=== PATIENT | female | born 1990 | race Caucasian/White ===

== ENCOUNTER 2023-05-30 23:59 | Emergency (ER) | payer MEDICAID ==
[~2023-05-30] VITALS: Ht 152.4 cm; Wt 90.7 kg
[2023-05-31] MEDS ORDERED: ONDANSETRON HCL/PF 4 MG/2 ML VIAL ONE (00:57)
[2023-05-31] MEDS ORDERED: KETOROLAC TROMETHAMINE INJ 30 MG/ML VIAL IV ONE (01:00)
[2023-05-31] MEDS ORDERED: ONDANSETRON HCL/PF 4 MG/2 ML VIAL IVP ONE (01:00)
[2023-05-31] MEDS ORDERED: IV NS 0.9% 1,000 ML BAG IV ONE (01:00)
[2023-05-31 01:12] LABS: BASOPHILS # (AUTO) 0.1 K/uL (0.0-0.2); BASOPHILS % (AUTO) 0.5 % (0.0-2.0); EOSINOPHILS # (AUTO) 0.7 K/uL (0.0-0.7); EOSINOPHILS % (AUTO) 5.3 % (0.0-6.0); HEMATOCRIT 37 % (33-45); HEMOGLOBIN 12.1 g/dL (11.5-14.8); MEAN CORPUSCULAR HEMOGLOBIN 28 PG (26.0-33.0); MEAN CORPUSCULAR HGB CONC 33 g/dl (31.0-36.0); MEAN CORPUSCULAR VOLUME 85 fL (82-100); MONOCYTES # (AUTO) 0.8 K/uL (0.1-1.30); MONOCYTES % (AUTO) 6.1 % (2.0-12.0); NEUTROPHILS # (AUTO) 7.1 K/uL (1.8-8.9); NEUTROPHILS % (AUTO) 56.1 % (43.0-81.0); PLATELET COUNT (AUTO) 456 K/uL (150-450); RED BLOOD CELL COUNT(AUTO) 4.35 MIL/uL (4.0-5.2); RED CELL DISTRIBUTION WIDTH 13.7 % (11.5-15.0); WHITE BLOOD COUNT (AUTO) 12.7 K/uL (4.3-11.0)
[2023-05-31 01:20] LABS: CALCIUM, SERUM 9.2 mg/dL (8.5-10.1); CREATININE 0.8 mg/dL (0.6-1.3); POTASSIUM 3.3 mmol/L (3.5-5.1)
[2023-05-31 01:26] LABS: ALBUMIN 3.9 g/dL (3.4-5.0); BILIRUBIN,DIRECT 0.1 mg/dL (0.0-0.2); BILIRUBIN,TOTAL 0.8 mg/dL (0.2-1.0); TOTAL PROTEIN, SERUM 8.4 g/dL (6.4-8.2)
[2023-05-31] MEDS ORDERED: KETO10TA2 PO (01:47)
[2023-05-31] MEDS ORDERED: ONDA4TAB11 PO (01:47)
[2023-05-31] MEDS ORDERED: TRAM-351 PO (01:47)
[2023-05-31] MEDS ORDERED: KETOROLAC TROMETHAMINE 15 MG/ML VIAL ONE (02:05)
[2023-05-31 04:02] VITALS: BP 138/86; TEMP 98.8; O2SAT 98
== END 2023-05-31 04:02 | disposition home or self-care (01) ==
LOC: ER 05-31 00:06
DX: K80.70 Calculus of gallbladder and bile duct without cholecystitis without obstruction (principal); R10.11 Right upper quadrant pain; R11.2 Nausea with vomiting, unspecified
CPT/HCPCS: 99285; 96374; 76705; 96361; 96375; 85025; 80048; 83690; 80076; 36415; J2405; J7030; J1885